=== PATIENT | female | born 1955 | race Caucasian/White ===

== ENCOUNTER → 2017-06-12 16:08 | Outpatient (CLI) | payer BC, SELFPAY | PROVIDERS: PCP Physician Assistant; Referring Provider Internal Medicine; Visit Provider Nurse Practitioner Family | DX: R40.0 Somnolence (principal); G47.33 Obstructive sleep apnea (adult) (pediatric); G47.9 Sleep disorder, unspecified; R00.2 Palpitations; R06.83 Snoring; I10 Essential (primary) hypertension; I11.9 Hypertensive heart disease without heart failure; E03.9 Hypothyroidism, unspecified; E66.9 Obesity, unspecified | CPT/HCPCS: 95806; G0399 ==

== ENCOUNTER → 2017-12-11 14:15 | Outpatient (REF) | payer BC, SELFPAY ==
[2017-12-11 18:20] LABS: Basophils # 0.1 K/mm3 (0-0.2); Basophils % 0.8 % (0.1-2.0); Eosinophils # 0.2 K/mm3 (0.0-0.4); Hematocrit 41.1 % (37.0-47.0); Hemoglobin 13.7 g/dL (12.2-16.2); Lymphocytes # 2.2 K/mm3 (0.7-4.5); Lymphocytes % 29.7 K/mm3 (10-50); Mean Corpuscular HGB Conc 33.3 g/dL (31.8-35.4); Mean Corpuscular Hemoglobin 29.6 pg (27.0-31.2); Mean Corpuscular Volume 88.7 fl (81-99); Mean Platelet Volume 7.1 fl (7.4-10.4); Monocytes # 0.4 K/mm3 (0.1-1.0); Monocytes % 5.7 % (1.7-9.3); Neutrophils # 4.7 K/mm3 (1.8-7.8); Neutrophils % 61.7 % (37.0-80.0); Platelet Count 404 K/mm3 (142-424); Red Blood Count 4.64 M/mm3 (4.20-5.40); Red Cell Distribution Width 13.1 % (11.5-17.5); White Blood Count 7.5 K/mm3 (4.8-10.8)
[2017-12-11 18:45] LABS: Alanine Aminotransferase 20 U/L (12-78); Albumin Level 3.9 gm/dL (3.4-5.0); Alkaline Phosphatase 77 U/L (46-116); Anion Gap 12.2 mEq/L (5-15); Aspartate Amino Transferase 17 U/L (15-37); Bilirubin,Total 0.3 mg/dL (0.2-1.0); Blood Urea Nitrogen 13 mg/dL (7-18); Calcium 9.2 mg/dL (8.5-10.1); Carbon Dioxide 29 mmol/L (21.0-32.0); Chloride 103 mmol/L (98-107); Chol/HDL Ratio 3.8 (1-3.5); Cholesterol 188 mg/dL (140-200); Creatinine,Serum 0.86 mg/dL (0.55-1.02); Estimated Glomerular Filt Rate 67 ml/min (>60); GFR (African American) 81 ML/MIN (>60); Globulin 3.9 gm/dl (1.3-3.2); Glucose 90 mg/dL (74-106); HDL Cholesterol 49 mg/dL (29-89); LDL Cholesterol 110 mg/dL (0-130); Potassium 4.2 mmoL/L (3.5-5.1); Sodium 140 mmol/L (136-145); T4 (Thyroxine) 5.7 ug/dl (4.7-13.3); Thyroid Stimulating Hormone 4.28 uIU/ml (0.358-3.740); Total Protein,Serum 7.8 gm/dL (6.4-8.2); Triglycerides 147 mg/dL (30-200); VLDL Cholesterol 29 mg/dL (0-40)
[2017-12-13 08:36] LABS: Vitamin D 25 Hydroxy 38.3 ng/mL (30.0-100.0)
== END ==
LOC: LAB 14:15
PROVIDERS: Visit Provider Physician Assistant
DX: I10 Essential (primary) hypertension (principal)
CPT/HCPCS: 80053; 80061; 82652; 84436; 84443; 85025

== ENCOUNTER → 2019-09-03 17:01 | Outpatient (CLI) | payer BC, SELFPAY ==
[2019-09-03 18:03] LABS: Basophils # 0.1 K/mm3 (0-0.2); Basophils % 1.7 % (0.1-2.0); Eosinophils # 0.1 K/mm3 (0.0-0.4); Eosinophils % 0.9 % (0.1-12.0); Hematocrit 38.8 % (37.0-47.0); Hemoglobin 13.3 g/dL (12.2-16.2); Lymphocytes # 3.1 K/mm3 (0.7-4.5); Lymphocytes % 48.8 % (10-50); Mean Corpuscular HGB Conc 34.3 g/dL (31.8-35.4); Mean Corpuscular Hemoglobin 30.5 pg (27.0-31.2); Mean Corpuscular Volume 88.7 fl (81-99); Mean Platelet Volume 7.7 fl (7.4-10.4); Monocytes # 0.4 K/mm3 (0.1-1.0); Monocytes % 5.6 % (1.7-9.3); Neutrophils # 2.8 K/mm3 (1.8-7.8); Neutrophils % 42.9 % (37.0-80.0); Platelet Count 278 K/mm3 (142-424); Red Blood Count 4.37 M/mm3 (4.20-5.40); Red Cell Distribution Width 13.6 % (11.5-17.5); White Blood Count 6.4 K/mm3 (4.8-10.8)
[2019-09-03 18:20] LABS: Alanine Aminotransferase 45 U/L (12-78); Albumin Level 4.3 g/dl (3.5-5.0); Albumin/Globulin Ratio 1.1 (1.1-1.8); Alkaline Phosphatase 95 U/L (38-126); Anion Gap 13.1 mEq/L (5-15); Aspartate Amino Transferase 71 U/L (14-36); Bilirubin,Total 0.5 mg/dl (0.2-1.3); Blood Urea Nitrogen 19 mg/dl (7-17); Calcium 9.9 mg/dl (8.4-10.2); Carbon Dioxide 35 mmol/L (22.0-30.0); Chloride 93 mmol/L (98-107); Chol/HDL Ratio 4.5 (1-3.5); Cholesterol 168 mg/dl (140-200); Estimated Glomerular Filt Rate 56 ml/min (>60); GFR (African American) 68 ML/MIN (>60); Glucose 117 mg/dl (74-100); HDL Cholesterol 37 mg/dl (40-60); Potassium 4.1 mmoL/L (3.5-5.1); Sodium 137 mmol/L (136-145); Total Protein,Serum 8.3 g/dl (6.3-8.2); Triglycerides 258 mg/dl (30-150); VLDL Cholesterol 52 mg/dL (0-40)
[2019-09-03 18:32] LABS: Direct LDL Cholesterol 84.29 mg/dL (100-129)
[2019-09-03 18:37] LABS: T4 (Thyroxine) 7.1 ug/dl (5.53-11.0)
[2019-09-04 16:26] LABS: Thyroid Stimulating Hormone 9.86 uIU/mL (0.465-4.68)
[2019-09-04 17:06] LABS: Hemoglobin A1C 5.6 % (4.0-6.0)
[2019-09-09 08:17] LABS: 1,25 Dihydroxy Vitamin D 50 pg/mL (.); 1,25-Dihydroxy, Vitamin D-2 <10 pg/mL (.); 1,25-Dihydroxy, Vitamin D-3 50 pg/mL (.)
== END ==
PROVIDERS: Visit Provider Physician Assistant
DX: R42 Dizziness and giddiness (principal); R51 Headache; Z79.899 Other long term (current) drug therapy
CPT/HCPCS: 80053; 80061; 82652; 83036; 84436; 84443; 85025

== ENCOUNTER 2019-09-08 08:37 | Emergency (ER) | payer BC, SELFPAY ==
[2019-09-08 08:40] VITALS: BP 104/71; PULSE 95; RESP 14; TEMP 36.7; O2SAT 94; BMI 37.4
--- NOTE | 2019-09-08 08:49 | ECG_ITS ---
APPROVED REPORT Exam: Resting ECG HR:91 bpm ECG Measurements Heart Rate 91 AXES HI 154 P 18 QRSd 94 QRS 20 QT 354 T 70 QTc 435 <Conclusion> Normal sinus rhythm Normal ECG Electronically signed by : Marcin Duncan, 09/08/2019 17:27:09
--- NOTE | 2019-09-08 08:55 | XR_ITS ---
PROCEDURE: XR CHEST 2V CLINICAL HISTORY: WEAKNESS COMPARISON: No exams were available for comparison FINDINGS: There is mild degenerative thoracic scoliosis. Lung pham, cardiac silhouette, and the soft tissues are unremarkable. IMPRESSION: Degenerative thoracic scoliosis, clear lung pham Dictated by: Gilbert Kathleen 09/08/2019 09:57 Electronically signed by Gilbert Kathleen in [place] 09/08/2019 09:57
--- NOTE | 2019-09-08 09:01 | PC.NURSE ---
pt going to rad
[2019-09-08 09:07] LABS: Appearance,Urine CLEAR (Clear); Blood, Urine Negative (Negative); Color,Urine AMBER (Yellow); Glucose,Urine (UA) Negative (Negative); Ketones,Urine TRACE (Negative); Leukocyte Esterase,Urine Negative (Negative); Microscopic, Urine URINE MICROSCOPIC (MICROSCOPIC); Nitrate,Urine Negative (Negative); PH,Urine 6.5 (5.0-8.5); Protein,Urine 1+ (Negative); Specific Gravity, Urine 1.015 (1.005-1.030); Urobilinogen,Urine 0.2 EU/dl (0.2)
[2019-09-08 09:14] LABS: Bilirubin,Urine Negative (Negative)
[2019-09-08 09:21] LABS: Chloride 95 mmol/L (98-107); Potassium 4.1 mmoL/L (3.5-5.1); Sodium 135 mmol/L (136-145)
[2019-09-08 09:23] LABS: Alanine Aminotransferase 135 U/L (12-78); Aspartate Amino Transferase 169 U/L (14-36); Bilirubin,Total 0.9 mg/dl (0.2-1.3); Blood Urea Nitrogen 14 mg/dl (7-17); Creatinine Clearance Estimated 94 mL/min (50-200); Estimated Glomerular Filt Rate 56 ml/min (>60); GFR (African American) 68 ML/MIN (>60)
[2019-09-08 09:24] LABS: Albumin Level 4.2 g/dl (3.5-5.0); Alkaline Phosphatase 110 U/L (38-126); Anion Gap 11.1 mEq/L (5-15); Calcium 8.8 mg/dl (8.4-10.2); Carbon Dioxide 33 mmol/L (22.0-30.0); Globulin 4.4 g/dL (1.3-3.2); Glucose 146 mg/dl (74-100); Total Protein,Serum 8.6 g/dl (6.3-8.2)
[2019-09-08 09:25] LABS: Basophils # 0.2 K/mm3 (0-0.2); Basophils % 1.7 % (0.1-2.0); Eosinophils # 0.1 K/mm3 (0.0-0.4); Eosinophils % 0.7 % (0.1-12.0); Hematocrit 40.2 % (37.0-47.0); Hemoglobin 13.8 g/dL (12.2-16.2); Lymphocytes # 5.4 K/mm3 (0.7-4.5); Lymphocytes % 59.9 % (10-50); Mean Corpuscular HGB Conc 34.3 g/dL (31.8-35.4); Mean Corpuscular Volume 87.2 fl (81-99); Mean Platelet Volume 7.2 fl (7.4-10.4); Monocytes # 0.3 K/mm3 (0.1-1.0); Monocytes % 3.4 % (1.7-9.3); Neutrophils # 3.1 K/mm3 (1.8-7.8); Neutrophils % 34.3 % (37.0-80.0); Platelet Count 329 K/mm3 (142-424); Red Blood Count 4.61 M/mm3 (4.20-5.40); Red Cell Distribution Width 13.8 % (11.5-17.5)
[2019-09-08 09:27] LABS: MANUAL DIFFERENTIAL MANUAL DIFFERENTIAL (MANUAL DIFF)
[2019-09-08 09:37] LABS: Troponin I < 0.01 ng/ml (0.00-0.034)
[2019-09-08 09:39] LABS: Bacteria,Urine 1+ /lpf
[2019-09-08 09:45] LABS: Eosinophils % 1 % (0-3); Lymphocytes % 46 % (10-50); Monocytes % 4 % (2-9); Neutrophils % 39 % (42-76); Platelet Estimate Normal; RBC Morphology Normal; Total Cells Counted 100
--- NOTE | 2019-09-08 09:47 | HMH.EDWEAK ---
ED Disposition Clinical Impression: Dehydration, Gastroenteritis Disposition: Home, Self-Care Condition on Discharge: Good Instructions: DI for Muscle Weakness Prescriptions: Tizanidine HCl [Zanaflex 4mg tablet] 4 mg PO TID 10 Days #30 tab Transmission Status: Pending to [facility]/pharmacy #[id number] Referrals: Zaina Zavala PA [Primary Care Provider] - - Critical Care Critical Care Time: No Attestation: On 09/08/19, the high probability of a clinically significant, sudden or life threatening deterioration of the following system(s) required my full and direct attention, intervention and personal management. The time I documented below is in addition to time spent performing reported procedures but includes the following listed in this critical care notation. Medical Decision Making - Medical Records Medical records reviewed: Yes: I reviewed the patient's medical records. - Abdon Inquiry Pt receiving controlled substance: No Vital Signs: 09/08/19 08:40 Temperature 98.1 F Temperature Source Oral Pulse Rate [Right Radial] 95 H Respiratory Rate 14 Blood Pressure [Right Arm] 104/71 L Blood Pressure Mean [Right Arm] 82 Blood Pressure Source [Right Arm] Automatic Cuff Blood Pressure Position [Right Arm] Sitting 02 Sat by Pulse Oximetry 94 L Oxygen Delivery Method Room Air - Lab Data Lab results reviewed: Yes: I reviewed the patient's lab results. Lab Results 09/08/19 08:58: Urine Color Angela, Urine Appearance Clear, Urine pH 6.5, Ur Specific [place] 1.015, Urine Protein 1+, Urine Glucose (UA) Negative, Urine Ketones Trace, Urine Blood Negative, Urine Nitrate Negative, Urine Bilirubin Negative, Urine Urobilinogen 0.2, Ur Leukocyte Esterase Negative, Urine RBC 3-5, Urine WBC 5-10, Ur Squamous Epith Cells 3-5, Urine Bacteria 1+ 09/08/19 09:00: WBC 9.0, RBC 4.61, Hgb 13.8, Hct 40.2, MCV 87.2, MCH 30.0, MCHC 34.3, RDW 13.8, Plt Count 329, MPV 7.2 L, Neut % (Auto) 34.3 L, Lymph % (Auto) 59.9 H, Porter % (Auto) 3.4, Eos % (Auto) 0.7, Baso % (Auto) 1.7, Neut # (Auto) 3.1, Lymph # (Auto) 5.4 H, Porter # (Auto) 0.3, Eos # (Auto) 0.1, Baso # (Auto) 0.2, Total Counted 100, Neutrophils % (Manual) 39 L, Lymphocytes % (Manual) 46, Atypical Lymphs % 8.0, Monocytes % (Manual) 4, Eosinophils % (Manual) 1, Basophils % (Manual) 2.0 H, Platelet Estimate Normal, RBC Morphology Normal 09/08/19 09:00: Sodium 135 L, Potassium 4.1, Chloride 95 L, Carbon Dioxide 33 H, Anion Gap 11.1, BUN 14, Creatinine 1.00, Estimated Creat Clear 94, Estimated GFR 56 L, Est GFR ( Amer) 68, Glucose 146 H, Calcium 8.8, Total Bilirubin 0.9, AST 169 H, ALT 135 H, Alkaline Phosphatase 110, Troponin I < 0.01, Total Protein 8.6 H, Albumin 4.2, Globulin 4.4 H, Albumin/Globulin Ratio 1.0 L Result diagrams: 09/08/19 09:00 09/08/19 09:00 Orders (Tests/Meds): ED MEDICATIONS Generic Name Dose Route Start Last Admin Trade Name Freq PRN Reason Stop Dose Admin Sodium Chloride 1,000 mls @ 999 mls/hr 09/08/19 09:15 09/08/19 09:05 Sod Chlor 0.9% 1000ml Bag IV 09/08/19 10:15 999 mls/hr .Q1H1M AYANNA Administration Discontinued Medications Generic Name Dose Route Start Last Admin Trade Name Freq PRN Reason Stop Dose Admin Ondansetron HCl 4 mg 09/08/19 09:03 09/08/19 09:05 Zofran 4mg/2ml Vial IV 09/08/19 09:04 4 mg ONCE ONE Administration ORDERS Category Date Time Status Chest XR 2 view (NOT portable) [XR chest 2V] Stat Exams 09/08/19 08:55 Taken Troponin I Q3H Lab 09/08/19 12:00 Ordered Troponin I Q3H Lab 09/08/19 15:00 Ordered - Radiology Data #1 Image(s): Chest Preliminary Findings: Normal/NAD Weakness HPI - General Chief complaint: Weakness Stated complaint: soa weakness Time Seen by Provider: 09/08/19 09:47 Mode of Arrival: Wheelchair Limitations: No Limitations Description of Symptoms (Recalled from ER Triage Doc. by RN): PT C/O INCREASED WEAKNESS X1 WEEK AND PT C/O CLAMMY SKIN TODAY. PT DENIES F
[2019-09-08 10:10] VITALS: BP 97/57; PULSE 76; RESP 20; O2SAT 98
[2019-09-08 10:46] VITALS: BP 103/59; PULSE 88
[2019-09-08 11:04] VITALS: BP 103/59; PULSE 88; RESP 16; TEMP 36.6; O2SAT 98
== END 2019-09-08 11:06 | disposition home or self-care (01) ==
PROVIDERS: Emergency Provider Family Medicine; PCP Physician Assistant
DX: E86.0 Dehydration (principal); K52.9 Noninfective gastroenteritis and colitis, unspecified; Z87.891 Personal history of nicotine dependence
CPT/HCPCS: 71046; 80053; 81001; 84484; 85007; 85025; 93005; 96365; 96375; 99284; J2405

== ENCOUNTER → 2019-09-12 13:43 | Outpatient (CLI) | payer BC, SELFPAY ==
--- NOTE | 2019-09-12 13:43 | US_ITS ---
PROCEDURE: US THYROID CLINICAL INDICATION: Enlarged thyroid; f/h thyroid cancer COMPARISON: No exams were available for comparison FINDINGS: Both thyroid glands are enlarged and heterogeneous echogenicity. Right lobe: 3 centimeters x 5.1 centimeters x 3.5 centimeters. Left lobe: 3.2 centimeters x 5.2 centimeters x 3.2 centimeters Isthmus: 8.3 millimeters Additional findings: No discrete mass lesions IMPRESSION: Thyromegaly, probable multinodular goiter. Dictated by: Gilbert Kathleen 09/12/2019 14:19 Electronically signed by Gilbert Kathleen in [place] 09/12/2019 14:19
== END ==
PROVIDERS: PCP Physician Assistant; Visit Provider Physician Assistant
DX: E01.0 Iodine-deficiency related diffuse (endemic) goiter (principal)
CPT/HCPCS: 76536

== ENCOUNTER → 2019-09-18 15:45 | Outpatient (CLI) | payer BC, SELFPAY ==
[2019-09-20 13:48] LABS: Covid-19 Nasal PCR Sendout Lex Not Detected
== END ==
PROVIDERS: PCP Physician Assistant; Visit Provider Physician Assistant
DX: Z03.818 Encounter for observation for suspected exposure to other biological agents ruled out (principal)
CPT/HCPCS: U0004

== ENCOUNTER → 2019-09-26 09:43 | Outpatient (CLI) | payer BC, SELFPAY | PROVIDERS: PCP Physician Assistant; Visit Provider Physician Assistant | DX: R06.02 Shortness of breath (principal) | CPT/HCPCS: 94060; 94618; 94726; 94729 ==

== ENCOUNTER → 2019-10-09 10:44 | Outpatient (CLI) | payer BC, SELFPAY ==
--- NOTE | 2019-10-09 10:46 | MM_ITS ---
PROCEDURE: MM DIG SCREENING MAMM BI W/CAD Digital Breast Tomosynthesis Included CLINICAL INDICATION: screening There is a history of breast cancer patient's mother diagnosed after menopause. COMPARISON: MAMMO SCREENING DIGITAL BILAT from 05/04/2015 Screening-Bilateral Mammography from 05/23/2016 Screening-Bilateral Mammography from 06/07/2017 TECHNIQUE: Standard CC and MLO images and 3D Tomosynthesis was obtained. R2 CAD reviewed. FINDINGS: The breasts are composed primarily of fat with mild scattered and somewhat diffuse fibroglandular densities in each breast. There are 2 mole markers right breast. There is a single mole marker left breast. There is no suspicious lesion in either breast and no suspicious microcalcifications. There are couple of benign-appearing calcifications deep within the right breast medially. IMPRESSION: Fibrofatty parenchyma with no suspicious lesions seen BI-RAD Category: 2 Benign Finding(s) FOLLOW-UP: 1YR 1 Year Follow-up (A letter has been sent to the patient regarding results of the study.) Dictated by: Dr. Miguel Angel Caballero MD 10/15/2019 21:[address] Miguel Angel Caballero MD in [place] 10/15/2019 21:00
--- NOTE | 2019-10-09 10:51 | CA_ITS ---
APPROVED REPORT EXAM: Comprehensive 2D, Doppler, and color-flow Echocardiogram Ink Blender: Sherry Molina RDCS Ht: 5 ft 6 in Wt: 230lbs BSA: 2.12 BP: 122/81 mmHg Indications: SOA,HTN,HLP,EX SMOKER 2D Dimensions LVOT 1.85 cm (M/F) 1.5-2.5 M-Mode Dimensions RVDd 3.32 cm (0.9-2.6) LVDd 4.46 cm (3.5-5.7) LVDs 3.40 cm (3.5-5.7) IVSd 0.94 cm (0.6-1.1) PWd 0.98 cm (0.6-1.1) EF (Teich) 47.60% FS 23.80% EDV (Teich) 90.50 mL ESV (Teich) 47.40 mL LV Diastology E/A Ratio 0.75 Mitral Valve MV A Velocity 65.00 (40-130 cm/s) Left Ventricle Left atrium is mildly enlarged, left ventricle is normal size, mild concentric left ventricular hypertrophy, visually estimated ejection fraction 55% with no regional wall motion abnormality, grade 1 diastolic dysfunction seen without tissue Doppler evidence of raise left atrial pressure. Right Ventricle Right atrium and right ventricular mildly enlarged with normal contractility. Aortic Valve Aortic valve is minimally thickened and fibrosed, there is no aortic stenosis or aortic insufficiency. Mitral Valve Mitral valve is grossly normal, there is mild mitral regurgitation. Tricuspid Valve Tricuspid valve is grossly normal, there is mild tricuspid regurgitation, tricuspid regurgitation jet velocity is inadequate for calculation of the right ventricular systolic pressure. Pulmonic Valve Pulmonic valve is poorly visualized. Great Vessels Aortic root is normal size. Pericardium Trivial pericardial effusion noted. Conclusion 1. Mild biatrial enlargement, normal left ventricular size, mild concentric left ventricular hypertrophy, visually estimated ejection fraction 55% with no regional wall motion abnormality, grade 1 diastolic dysfunction seen without tissue Doppler evidence of raise left atrial pressure. 2. Mildly enlarged right ventricle with normal contractility. 3. Mild mitral and tricuspid regurgitation. 4. No significant pericardial effusion noted. Electronically signed by : Joel Morales, 10/09/2019 14:31:02
== END ==
PROVIDERS: PCP Physician Assistant; Visit Provider Physician Assistant
DX: Z12.31 Encounter for screening mammogram for malignant neoplasm of breast (principal); R06.02 Shortness of breath
CPT/HCPCS: 77063; 77067; 93306

== ENCOUNTER → 2019-11-06 15:09 | Outpatient (CLI) | payer BC, SELFPAY ==
[2019-11-06 16:12] LABS: Free T4 (Free Thyroxine) 1.26 ng/dl (0.78-2.19)
[2019-11-06 16:25] LABS: Thyroid Stimulating Hormone 1.28 uIU/mL (0.465-4.68)
[2019-11-08 08:14] LABS: Thyroid Peroxidase Antibodies 76 IU/mL (0-34)
[2019-11-08 10:16] LABS: Triiodothyronine (T3) Free 3.2 pg/mL (2.0-4.4)
[2019-11-10 11:16] LABS: Calcitonin <2.0 pg/mL (0.0-5.0)
[2019-11-10 18:57] LABS: Thyroid Stimulating Immunoglob <0.10 IU/L (0.00-0.55)
== END ==
PROVIDERS: Visit Provider Otolaryngology
DX: E04.9 Nontoxic goiter, unspecified (principal); E06.3 Autoimmune thyroiditis
CPT/HCPCS: 36415; 82308; 84439; 84443; 84445; 84481; 86376

== ENCOUNTER → 2020-12-15 10:48 | Outpatient (CLI) | payer BC, SELFPAY ==
--- NOTE | 2020-12-15 10:55 | MM_ITS ---
PROCEDURE INFORMATION: Exam: MG Bilateral Screening 3D Mammography Exam date and time: 12/15/2020 10:55 AM Age: 65 years old Clinical indication: Encounter for screening mammogram for malignant neoplasm of breast TECHNIQUE: Imaging protocol: Bilateral screening tomosynthesis and 2D mammography including computer-aided detection (CAD) when performed. COMPARISON: 1. MG MM DIG SCREENING MAMM BI W/CAD 10/09/2019 10:46 AM 2. MG Screening-Bilateral Mammography 06/07/2017 6:52 PM FINDINGS: MAMMOGRAPHY: Breast composition: The breast tissue is composed of scattered areas of fibroglandular density. Mass: None. Architectural distortion: None. Calcifications: No suspicious calcifications. Asymmetric density: None. Skin thickening: None. Axillary adenopathy: None. IMPRESSION: No mammographic evidence of malignancy. Annual screening is recommended unless otherwise clinically indicated. ASSESSMENT: BI-RADS Category 1: Negative
== END ==
PROVIDERS: PCP Physician Assistant; Visit Provider Nurse Practitioner
DX: Z12.31 Encounter for screening mammogram for malignant neoplasm of breast (principal)
CPT/HCPCS: 77063; 77067

== ENCOUNTER → 2021-08-22 14:00 | Outpatient (CLI) | payer BC, SELFPAY ==
[2021-08-22 13:37] LABS: Basophils # 0.1 K/mm3 (0-0.2); Basophils % 1.7 % (0.1-2.0); Eosinophils # 0.1 K/mm3 (0.0-0.4); Eosinophils % 1.8 % (0.1-12.0); Hemoglobin 14.7 g/dL (12.2-16.2); Lymphocytes # 2.2 K/mm3 (0.7-4.5); Lymphocytes % 31.7 % (10-50); Mean Corpuscular HGB Conc 33.4 g/dL (31.8-35.4); Mean Corpuscular Hemoglobin 30.6 pg (27.0-31.2); Mean Corpuscular Volume 91.4 fl (81-99); Mean Platelet Volume 7.8 fl (7.4-10.4); Monocytes # 0.3 K/mm3 (0.1-1.0); Monocytes % 4.7 % (1.7-9.3); Neutrophils # 4.1 K/mm3 (1.8-7.8); Neutrophils % 60.2 % (37.0-80.0); Platelet Count 380 K/mm3 (142-424); Red Blood Count 4.82 M/mm3 (4.20-5.40); Red Cell Distribution Width 13.3 % (11.5-17.5); White Blood Count 6.8 K/mm3 (4.8-10.8)
[2021-08-22 13:41] LABS: Alanine Aminotransferase 19 U/L (12-78); Albumin Level 4.2 g/dl (3.5-5.0); Albumin/Globulin Ratio 1.2 (1.1-1.8); Alkaline Phosphatase 64 U/L (38-126); Anion Gap 10.9 mEq/L (5-15); Aspartate Amino Transferase 30 U/L (14-36); Bilirubin,Total 0.3 mg/dl (0.2-1.3); Blood Urea Nitrogen 12 mg/dl (7-17); Calcium 9.7 mg/dl (8.4-10.2); Carbon Dioxide 33 mmol/L (22.0-30.0); Chloride 97 mmol/L (98-107); Chol/HDL Ratio 3.8 (1-3.5); Cholesterol 203 mg/dl (140-200); Estimated Glomerular Filt Rate 84 ml/min (>60); GFR (African American) 102 ML/MIN (>60); Globulin 3.4 g/dL (1.3-3.2); Glucose 103 mg/dl (74-100); HDL Cholesterol 53 mg/dl (40-60); Potassium 3.9 mmoL/L (3.5-5.1); Sodium 137 mmol/L (136-145); Total Protein,Serum 7.6 g/dl (6.3-8.2); Triglycerides 175 mg/dl (30-150); VLDL Cholesterol 35 mg/dL (0-40)
[2021-08-22 13:52] LABS: Direct LDL Cholesterol 92.78 mg/dL (100-129)
[2021-08-22 13:58] LABS: 25-OH Vitamin D, Total 34.5 ng/mL (30-100)
[2021-08-22 14:11] LABS: Thyroid Stimulating Hormone 1.05 uIU/mL (0.465-4.68)
[2021-08-22 14:30] LABS: Vitamin B12 393 pg/mL (239-931)
== END ==
PROVIDERS: PCP Physician Assistant; Visit Provider Physician Assistant
DX: R19.7 Diarrhea, unspecified (principal); E03.9 Hypothyroidism, unspecified; I10 Essential (primary) hypertension; R53.83 Other fatigue; E66.9 Obesity, unspecified; Z68.35 Body mass index [BMI] 35.0-35.9, adult
CPT/HCPCS: 80053; 80061; 82306; 82607; 84443; 85025

== ENCOUNTER → 2021-08-23 09:24 | Outpatient (CLI) | payer BC, SELFPAY ==
[2021-08-23 09:27] LABS: Adenovirus F 40/41, stool Not Detected (NotDetected); Astrovirus Not Detected (NotDetected); Campylobacter Not Detected (NotDetected); Clostridium Difficile A/B, PCR Not Detected (NotDetected); Cryptosporidium Not Detected (NotDetected); Cyclospora Cayetanesis Not Detected (NotDetected); Entamoeba histolytica Not Detected (NotDetected); Enteroaggregative E coli Not Detected (NotDetected); Enteropathogenic E coli Not Detected (NotDetected); Enterotoxigenic E coli Not Detected (NotDetected); Giardia lamblia Not Detected (NotDetected); Norovirus Not Detected (NotDetected); Plesimonas Shigalloides, PCR Not Detected (NotDetected); Rotavirus A Not Detected (NotDetected); Salmonella, PCR Not Detected (NotDetected); Sapovirus Not Detected (NotDetected); Shiga-like toxin E coli Not Detected (NotDetected); Shigella Enterovasive E coli Not Detected (NotDetected); Vibrio Cholerae Not Detected (NotDetected); Vibrio, PCR Not Detected (NotDetected); Yersinia Entercolitica, PCR Not Detected (NotDetected)
[2021-08-23 12:12] LABS: Occult Blood,Stool Negative (Negative)
== END ==
PROVIDERS: Physician Assistant; PCP Nurse Practitioner Family; Visit Provider Nurse Practitioner Family
DX: R19.7 Diarrhea, unspecified (principal); Z00.00 Encounter for general adult medical examination without abnormal findings
CPT/HCPCS: 82272; 87507; G0328

== ENCOUNTER → 2021-11-22 08:05 | Outpatient (POV) | payer MEDICARE, SELFPAY | PROVIDERS: Visit Provider Dermatology | DX: Z00.00 Encounter for general adult medical examination without abnormal findings (principal) ==

== ENCOUNTER → 2022-01-19 09:33 | Outpatient (CLI) | payer MEDICARE, SELFPAY ==
--- NOTE | 2022-01-19 09:37 | MM_ITS ---
PROCEDURE INFORMATION: Exam: MG Bilateral Screening 3D Mammography Exam date and time: 01/19/2022 9:31 AM Age: 66 years old Clinical indication: Screening examination TECHNIQUE: Imaging protocol: Bilateral Screening tomosynthesis and 2D mammography including computer-aided detection (CAD) when performed. COMPARISON: 1. MG MM DIG SCREENING MAMM BI W/CAD 12/15/2020 10:54 AM 2. MG MM DIG SCREENING MAMM BI W/CAD 10/09/2019 10:46 AM FINDINGS: MAMMOGRAPHY: Breast composition: There are scattered areas of fibroglandular density. Mass: None. Architectural distortion: None. Calcifications: No suspicious calcifications. Asymmetric density: None. Skin thickening: None. Axillary adenopathy: None. IMPRESSION: No mammographic evidence of malignancy. Annual screening is recommended unless otherwise clinically indicated. ASSESSMENT: BI-RADS Category 1: Negative
== END ==
PROVIDERS: PCP Physician Assistant; Visit Provider Physician Assistant
DX: Z12.31 Encounter for screening mammogram for malignant neoplasm of breast (principal)
CPT/HCPCS: 77063; 77067

== ENCOUNTER → 2022-03-06 12:24 | Outpatient (CLI) | payer MEDICARE, SELFPAY ==
[2022-03-06 12:32] LABS: Adenovirus,PCR Not Detected (NotDetected); Bordetella Pertussis Not Detected (NotDetected); Chlamydophila Pneumoniae, PCR Not Detected (NotDetected); Coronavirus 19, PCR Not Detected (NotDetected); Coronavirus 229E Not Detected (NotDetected); Coronavirus NL63 Not Detected (NotDetected); Coronavirus OC43 Not Detected (NotDetected); Coronovirus HKU1,PCR Not Detected (NotDetected); Human Metapneumovirus Not Detected (NotDetected); Influenza A, PCR Not Detected (NotDetected); Influenza AH1, 2009 Not Detected (NotDetected); Influenza AH1, PCR Not Detected (NotDetected); Influenza B, PCR Not Detected (NotDetected); Mycoplasma Pneumoniae, PCR Not Detected (NotDetected); Parainfluenza 1, PCR Not Detected (NotDetected); Parainfluenza 2, PCR Not Detected (NotDetected); Parainfluenza 3, PCR Not Detected (NotDetected); Parainfluenza 4, PCR Not Detected (NotDetected); Respiratory Syncytial Virus Not Detected (NotDetected); Rhinovirus/Enterovirus Not Detected (NotDetected)
--- NOTE | 2022-03-06 12:39 | XR_ITS ---
FINAL REPORT CLINICAL HISTORY: Acute cough COMPARISON: 09/08/2019 FINDINGS: Two views of the chest were obtained. The heart size and pulmonary vascularity are within normal limits. The mediastinum is normal. No acute pulmonary abnormality is identified. There is no pneumothorax. The bony thorax is intact. IMPRESSION: No active cardiopulmonary disease. Reviewed, Interpreted and Dictated by Adan Rojas III, MD Transcribed by Daniella Billingsley Authenticated and . [facility]
[2022-03-06 16:20] LABS: Influenza AH3,PCR Detected (NotDetected)
== END ==
PROVIDERS: PCP Physician Assistant; Visit Provider Physician Assistant
DX: R05.9 Cough, unspecified (principal); J09.X2 Influenza due to identified novel influenza A virus with other respiratory manifestations
CPT/HCPCS: 71046; 87581; 87632; 87798; C9803; U0003; U0005

== ENCOUNTER → 2022-05-29 15:51 | Outpatient (CLI) | payer MEDICARE, SELFPAY ==
--- NOTE | 2022-05-29 15:51 | MR_ITS ---
PROCEDURE INFORMATION: Exam: MR Lumbar Spine Without Contrast Exam date and time: 05/29/2022 4:09 PM Age: 66 years old Clinical indication: Low back pain; Additional info: Lumbar compression fracture. Patient fell 1.5 months ago. Low back pain with bilateral hip pain TECHNIQUE: Imaging protocol: Magnetic resonance imaging of the lumbar spine without contrast. COMPARISON: No relevant prior studies available. FINDINGS: Bones/joints: There is preservation of vertebral alignment. There are anterior compression deformities at L2 and L3 vertebrae with residual superior endplate STIR hyperintensity in keeping with subacute age. Mild discogenic changes at L3-L4 level.No marrow replacing process. Spinal cord: Conus medullaris and cauda equina nerve roots are unremarkable L1-L2: No significant disc bulge or herniation. No severe spinal canal stenosis. No significant neural foraminal narrowing. L2-L3: Diffuse disc bulge and facet arthropathy produce moderate thecal sac compression. There is no significant neural foraminal narrowing. L3-L4: Diffuse disc bulge and facet arthropathy produce mild thecal sac compression. There is mild bilateral neural foraminal narrowing. L4-L5: Diffuse disc bulge and facet arthropathy produce mild thecal sac compression. There is moderate bilateral neural foraminal narrowing. There is a right foraminal disc protrusion in close proximity to right L4 exiting nerve root. L5-S1: Diffuse disc bulge and facet arthropathy without significant thecal sac compression. There is mild bilateral neural foraminal narrowing. Soft tissues: Unremarkable. Kidneys and ureters: There are variably-sized renal cysts. Vasculature: Retroaortic left renal vein noted. IMPRESSION: 1. There are anterior compression deformities at L2 and L3 vertebrae with residual superior endplate STIR hyperintensity, in keeping with subacute age. 2. Multilevel degenerative changes most significant for moderate thecal sac compression at L2-L3 level. Moderate bilateral neural foramina narrowing at L4-L5 level.
== END ==
PROVIDERS: PCP Physician Assistant; Visit Provider Physician Assistant
DX: S32.000A Wedge compression fracture of unspecified lumbar vertebra, initial encounter for closed fracture (principal); M54.50 Low back pain, unspecified
CPT/HCPCS: 72148; 76376

== ENCOUNTER → 2022-06-19 13:14 | Outpatient (POV) | payer MEDICARE, SELFPAY ==
[2022-06-19 13:50] VITALS: BP 132/84; PULSE 79; RESP 18; O2SAT 97; BMI 35.7
--- NOTE | 2022-06-19 13:51 | EXP.PAIN.OV ---
HPI Data of Consult Patient: new to practice Consult date: 06/19/22 Requesting Physician: Angela Buckley APRN Primary Care Provider: JOSÉ Hargrove Consult Narrative Reason for consult: Low back pain, compression fracture History of present illness: Ms. Zuleta is a 66 year old female who presents today as a new patient. She is a referral from Zaina Zavala's office. Today she rates her pain a 0 out of 10. Patient states she recently had a fall in around the end of March and did have significant pain however it did get better. Patient did have an MRI that showed compression fractures of L2 and L3. Patient states she continues to have this occasional pain that is a sharp, shooting pain. She states it is more frequent with certain movements. Today while she is sitting she states that it is manageable. Patient states that she was recently on oral steroids for her sinuses and did not realize how well this medication was actually helping her back pain. She states she did notice once stopping this medicine that her pain was worse. She states occasionally she will have trouble sleeping at night and that she frequently has to change positions from hip to hip. She does state that she has questions regarding the kyphoplasty procedure due to not currently having constant pain. Patient is not currently on any scheduled medications. Her Abdon is [phone]. Its been reviewed and appropriate. CC: Angela Buckley APRN [facility] Disclaimer: The information contained in this section may have been updated after the patient was seen, as this information can be updated by other users. Medical History (Updated 06/19/22 @ 13:54 by Angela Buckley APRN) Anxiety and depression Splenic cyst Social History Smoking Status: Former smoker alcohol intake: current substance use type: denies use current occupational status: retired Travel in the last 8 weeks: None household members: spouse housing: house Review of Systems Review of Systems Review of systems:: pertinent systems reviewed and negative unless documented below Review of systems (narrative): Review of Systems: General: No recent weight changes, no fever, no sleep disturbances Respiratory: No cough, no shortness of air, no recurring pulmonary infections Cardiovascular/peripheral vascular: No chest pain, no palpitations, no edema, no shortness of breath Gastrointestinal: No new onset incontinence, normal bowel movements reported Genitourinary: No new onset incontinence Musculoskeletal: Low back pain Psychiatric: [Normal mood/affect] Neurological: [Denies weakness in extremities], [denies balance issues] Meds Home Medications and Allergies Home Medications Medication Instructions Recorded Confirmed Type cyclobenzaprine 5 mg tablet 5 mg PO BID PRN muscle spasm #60 04/24/22 06/02/22 Rx tabs levothyroxine 75 mcg tablet 75 mcg PO DAILY 05/18/22 06/02/22 History amlodipine 5 mg tablet 5 mg PO DAILY BLOOD PRESSURE 06/19/22 06/19/22 History fluoxetine 10 mg capsule See Rx Instructions .Route 06/19/22 06/19/22 History .COMPLEX MOOD hydrochlorothiazide 50 mg tablet 50 mg PO QDAY Fluid 06/19/22 06/19/22 History lisinopril 40 mg tablet See Rx Instructions .Route 06/19/22 06/19/22 History .COMPLEX BLOOD PRESSURE New Prescriptions to Start Prescriptions: Allergies Allergy/AdvReac Type Severity Reaction Status Date / Time prednisone AdvReac Mild anxiety Uncoded 06/02/22 15:09 Objective Narrative: Physical Exam: General: Alert and oriented x3, no acute distress, pleasant and cooperative Lungs: Respirations even and unlabored, symmetrical chest expansion Eyes: PERRL Musculoskeletal: Flexion and extension of lumbar [spine] somewhat guarded secondary to pain, [antalgic gait noted] Neurological: Speech clear, no gross sensory deficit Additional findings Additional findings: PROCEDURE INFORMATIO
== END ==
PROVIDERS: PCP Physician Assistant; Visit Provider Nurse Practitioner Family
DX: S32.000A Wedge compression fracture of unspecified lumbar vertebra, initial encounter for closed fracture (principal); M54.50 Low back pain, unspecified
CPT/HCPCS: 99202; G0463

== ENCOUNTER → 2022-06-27 08:57 | Outpatient (CLI) | payer MEDICARE, SELFPAY ==
--- NOTE | 2022-06-27 09:01 | XR_ITS ---
FINAL REPORT TECHNIQUE: Bone densitometry calculations of the lumbar spine and right hip were obtained. CLINICAL HISTORY: . post menopausal , compression fx FINDINGS: DEXA BONE DENSITY AXIAL SKELETON Using L1-4, the bone mineral density of the spine is 1.366 g/cm2, corresponding to T-score of 2.9. Using the right hip, the bone mineral density of the femoral neck is 1.052 g/cm2, corresponding to a T-score of 1.8. NOTE: T-score: Standard deviation compared with peak bone mass of young adult mean. *Following the recommendations of the International Society of Bone densitometry, classification of hip BMD is based on the lower of two T-scores; total hip or femoral neck. IMPRESSION: Normal bone mineral density of the lumbar spine and hip. FRAX not reported because: Some T-score for Spine Total or hip Total or femoral neck at or above -1.0. Reviewed, Interpreted and Dictated by Adan Rojas III, MD Transcribed by Rona Calvert Authenticated and [facility]
== END ==
PROVIDERS: PCP Physician Assistant; Visit Provider Nurse Practitioner Family
DX: Z78.0 Asymptomatic menopausal state (principal); Z87.311 Personal history of (healed) other pathological fracture
CPT/HCPCS: 77080

== ENCOUNTER → 2023-01-24 13:13 | Outpatient (CLI) | payer MEDICARE, SELFPAY ==
[2023-01-24 13:02] LABS: Basophils # 0.1 K/mm3 (0-0.2); Basophils % 0.9 % (0.1-2.0); Eosinophils # 0.1 K/mm3 (0.0-0.4); Eosinophils % 1.3 % (0.1-12.0); Hematocrit 41.7 % (37.0-47.0); Hemoglobin 14.7 g/dL (12.2-16.2); Lymphocytes # 2.6 K/mm3 (0.7-4.5); Lymphocytes % 38.2 % (10-50); Mean Corpuscular HGB Conc 35.1 g/dL (31.8-35.4); Mean Platelet Volume 7.7 fl (7.4-10.4); Monocytes # 0.4 K/mm3 (0.1-1.0); Monocytes % 5.5 % (1.7-9.3); Neutrophils # 3.7 K/mm3 (1.8-7.8); Platelet Count 388 K/mm3 (142-424); Red Blood Count 4.59 M/mm3 (4.20-5.40); Red Cell Distribution Width 12.9 % (11.5-17.5); White Blood Count 6.9 K/mm3 (4.8-10.8)
[2023-01-24 13:56] LABS: Alanine Aminotransferase 17 U/L (12-78); Albumin Level 4.8 g/dl (3.5-5.0); Albumin/Globulin Ratio 1.3 (1.1-1.8); Alkaline Phosphatase 62 U/L (38-126); Anion Gap 17.8 mEq/L (5-15); Aspartate Amino Transferase 32 U/L (14-36); Bilirubin,Total 0.4 mg/dl (0.2-1.3); Blood Urea Nitrogen 10 mg/dl (7-17); Calcium 9.5 mg/dl (8.4-10.2); Carbon Dioxide 30 mmol/L (22.0-30.0); Chloride 92 mmol/L (98-107); Chol/HDL Ratio 3.6 (1-3.5); Cholesterol 213 mg/dl (140-200); Estimated Glomerular Filt Rate 84 ml/min (>60); GFR (African American) 101 ML/MIN (>60); Globulin 3.6 g/dL (1.3-3.2); Glucose 93 mg/dl (74-100); HDL Cholesterol 59 mg/dl (40-60); Potassium 3.8 mmoL/L (3.5-5.1); Sodium 136 mmol/L (136-145); Total Protein,Serum 8.4 g/dl (6.3-8.2); Triglycerides 142 mg/dl (30-150); VLDL Cholesterol 28 mg/dL (0-40)
[2023-01-24 14:07] LABS: Direct LDL Cholesterol 107.52 mg/dL (100-129)
[2023-01-24 14:28] LABS: Thyroid Stimulating Hormone 3.59 uIU/mL (0.465-4.68)
== END ==
PROVIDERS: PCP Physician Assistant; Visit Provider Physician Assistant
DX: E03.9 Hypothyroidism, unspecified (principal)
CPT/HCPCS: 80053; 80061; 84443; 85025

== ENCOUNTER → 2023-02-09 07:52 | Outpatient (CLI) | payer MEDICARE, SELFPAY ==
--- NOTE | 2023-02-09 07:52 | MM_ITS ---
PROCEDURE INFORMATION: Exam: MG Bilateral Screening 3D Mammography Exam date and time: 02/09/2023 7:53 AM Age: 67 years old Clinical indication: Screening examination TECHNIQUE: Imaging protocol: Bilateral Screening tomosynthesis and 2D mammography including computer-aided detection (CAD) when performed. COMPARISON: 1. MG MM DIG SCREENING MAMM BI W/CAD 01/19/2022 9:31 AM 2. MG MM DIG SCREENING MAMM BI W/CAD 12/15/2020 10:54 AM FINDINGS: MAMMOGRAPHY: Breast composition: There are scattered areas of fibroglandular density. Mass: None. Architectural distortion: None. Calcifications: No suspicious calcifications. Asymmetric density: None. Skin thickening: None. Axillary adenopathy: None. IMPRESSION: No mammographic evidence of malignancy. Annual screening is recommended unless otherwise clinically indicated. ASSESSMENT: BI-RADS Category 1: Negative
== END ==
PROVIDERS: PCP Physician Assistant; Visit Provider Physician Assistant
DX: Z12.31 Encounter for screening mammogram for malignant neoplasm of breast (principal)
CPT/HCPCS: 77063; 77067

== ENCOUNTER 2023-05-22 07:40 | Outpatient (CLI) | payer MEDICARE, SELFPAY ==
[2023-05-22 09:01] LABS: Chol/HDL Ratio 2.9 (1-3.5); Cholesterol 170 mg/dl (140-200); HDL Cholesterol 58 mg/dl (40-60); Triglycerides 128 mg/dl (30-150); VLDL Cholesterol 26 mg/dL (0-40)
[2023-05-22 09:12] LABS: Direct LDL Cholesterol 70.29 mg/dL (100-129)
== END 2023-05-22 23:59 ==
LOC: LAB 07:42
PROVIDERS: PCP Physician Assistant; Visit Provider Internal Medicine Cardiovascular Disease
DX: E78.2 Mixed hyperlipidemia (principal)
CPT/HCPCS: 36415; 80061

== ENCOUNTER 2023-11-09 13:15 | Outpatient (CLI) | payer MEDICARE, SELFPAY | END 2023-11-09 23:59 | disposition home or self-care (01) | LOC: LAB.DROPOF 11-12 07:22 | PROVIDERS: PCP Physician Assistant; Visit Provider Physician Assistant | DX: R10.9 Unspecified abdominal pain (principal) | CPT/HCPCS: 87086 ==

== ENCOUNTER 2023-12-18 11:16 | Outpatient (CLI) | payer MEDICARE, SELFPAY ==
[2023-12-18 11:23] LABS: Adenovirus F 40/41, stool Not Detected (NotDetected); Astrovirus Not Detected (NotDetected); Campylobacter Not Detected (NotDetected); Clostridium Difficile A/B, PCR Not Detected (NotDetected); Cryptosporidium Not Detected (NotDetected); Cyclospora Cayetanesis Not Detected (NotDetected); Entamoeba histolytica Not Detected (NotDetected); Enteroaggregative E coli Not Detected (NotDetected); Enteropathogenic E coli Not Detected (NotDetected); Enterotoxigenic E coli Not Detected (NotDetected); Giardia lamblia Not Detected (NotDetected); Plesimonas Shigalloides, PCR Not Detected (NotDetected); Rotavirus A Not Detected (NotDetected); Salmonella, PCR Not Detected (NotDetected); Sapovirus Not Detected (NotDetected); Shiga-like toxin E coli Not Detected (NotDetected); Shigella Enterovasive E coli Not Detected (NotDetected); Vibrio Cholerae Not Detected (NotDetected); Vibrio, PCR Not Detected (NotDetected); Yersinia Entercolitica, PCR Not Detected (NotDetected)
[2023-12-18 18:49] LABS: Norovirus Detected (NotDetected)
== END 2023-12-18 23:59 | disposition home or self-care (01) ==
LOC: LAB 11:17
PROVIDERS: PCP Physician Assistant; Visit Provider Nurse Practitioner Family
DX: K92.1 Melena (principal); R10.9 Unspecified abdominal pain; R19.7 Diarrhea, unspecified; R15.2 Fecal urgency; R19.4 Change in bowel habit
CPT/HCPCS: 87506

== ENCOUNTER 2024-03-10 09:04 | Outpatient (CLI) | payer MEDICARE, SELFPAY ==
--- NOTE | 2024-03-10 09:08 | XR_ITS ---
FINAL REPORT CLINICAL HISTORY: SCREENING COMPARISON: 06/27/2022 FINDINGS: Using L1-4, the bone mineral density of the spine is 1.369 g/cm2, corresponding to T-score of 2.9, within normal limits. Previously was 1.366 with a T-score of 2.9. Using the left hip, the bone mineral density of the total hip is 1.185 g/cm2, corresponding to a T-score of 2.0, within normal limits. Previously was 1.177 with a T-score of 1.9. Using the right hip, the bone mineral density of the total hip is 1.213 g/cm2, corresponding to a T-score of 2.2, within normal limits. Previously was 1.052 with a T-score of 1.8. FRAX not reported because all T-scores at or above -1.0. NOTE: T-score: Standard deviation compared with peak bone mass of young adult mean. *Following the recommendations of the International Society of Bone densitometry, classification of hip BMD is based on the lower of two T-scores; total hip or femoral neck. IMPRESSION: Normal bone mineral density of the lumbar spine and hips. Reviewed, Interpreted and Dictated by Henry Grigsby MD Transcribed by Carmen Mosley Authenticated and [facility]
--- NOTE | 2024-03-10 09:08 | MM_ITS ---
PROCEDURE INFORMATION: Exam: MG Bilateral Screening 3D Mammography Exam date and time: 03/10/2024 9:09 AM Age: 68 years old Clinical indication: Screening examination TECHNIQUE: Imaging protocol: Bilateral Screening tomosynthesis and 2D mammography including computer-aided detection (CAD) when performed. COMPARISON: 1. MG MM DIG SCREENING MAMM BI W/CAD 02/09/2023 7:53 AM 2. MG MM DIG SCREENING MAMM BI W/CAD 01/19/2022 9:31 AM FINDINGS: MAMMOGRAPHY: Breast composition: There are scattered areas of fibroglandular density. Mass: None. Architectural distortion: None. Calcifications: No suspicious calcifications. Asymmetric density: None. Skin thickening: None. Axillary adenopathy: None. IMPRESSION: No mammographic evidence of malignancy. Annual screening is recommended unless otherwise clinically indicated. ASSESSMENT: BI-RADS Category 1: Negative.
== END 2024-03-10 23:59 | disposition home or self-care (01) ==
LOC: RAD 09:06
PROVIDERS: PCP Physician Assistant; Visit Provider Physician Assistant
DX: M81.0 Age-related osteoporosis without current pathological fracture (principal); Z12.31 Encounter for screening mammogram for malignant neoplasm of breast
CPT/HCPCS: 77063; 77067; 77080

== ENCOUNTER 2024-04-28 08:24 | Outpatient (CLI) | payer MEDICARE, SELFPAY ==
--- NOTE | 2024-04-28 08:27 | US_ITS ---
FINAL REPORT TECHNIQUE: Thyroid ultrasound CLINICAL HISTORY: GOITER COMPARISON: None FINDINGS: THYROID ULTRASOUND: The thyroid gland is severely enlarged, the right lobe measuring 30.4 cc in volume, the left lobe measuring 34 cc in volume. The gland is heterogeneous and vascular, in appearance which could be secondary to Graves' disease or acute thyroiditis. There are 2 nodular areas in the left lobe that are heterogeneous, however if treated as discrete nodules, these nodules are hypoechoic, TI-RADS category 3 nodules, likely benign. IMPRESSION: Severe thyromegaly with a heterogeneous and vascular thyroid gland, which may be secondary to Graves' disease or acute thyroiditis. 2 nodular areas as described in the left lobe, if treated as discrete nodules these represent TI-RADS category 3 hypoechoic nodules, which are likely benign. No additional follow-up is required at this time according to TI-RADS criteria. Reviewed, Interpreted and Dictated by Henry Grigsby MD Transcribed by Yanira Angulo Authenticated and . [facility]
== END 2024-04-28 23:59 | disposition home or self-care (01) ==
LOC: RAD 08:25
PROVIDERS: PCP Physician Assistant; Visit Provider Physician Assistant
DX: E04.2 Nontoxic multinodular goiter (principal)
CPT/HCPCS: 76536

== ENCOUNTER 2024-06-17 09:54 | Outpatient (CLI) | payer MEDICARE, SELFPAY ==
--- NOTE | 2024-06-17 09:57 | US_ITS ---
FINAL REPORT CLINICAL HISTORY: LT LOWER LIMB SWELLING/MASS/LUMP COMPARISON: None FINDINGS: Limited sonographic images were obtained of the soft tissues of the left upper thigh at the region of palpable abnormality. No evidence of solid mass or fluid collection. IMPRESSION: Unremarkable exam. Reviewed, Interpreted and Dictated by Henry Grigsby MD Transcribed by Carmen Mosley Authenticated and [facility]
== END 2024-06-17 23:59 | disposition home or self-care (01) ==
LOC: RAD 09:54
PROVIDERS: PCP Physician Assistant; Visit Provider Physician Assistant
DX: R22.42 Localized swelling, mass and lump, left lower limb (principal)
CPT/HCPCS: 76882

== ENCOUNTER 2024-12-03 12:53 | Outpatient (CLI) | payer MEDICARE, SELFPAY ==
--- OUTSIDE RECORDS SUMMARY | 2024-12-03 12:56 | XMS_ITS | Clinical Summary ---
[facility] Organization [facility] Address [address] [place] [address] Care Team Providers Care Nut Steamer Name Role Phone Zaina Zavala Primary Care Provider [phone] Allergies No known active allergies Medications FLUoxetine (PROzac) 10 MG capsuleIndication s:Anxiety and depression Take 1 capsule by mouth Daily. 90 capsule 3 1 Active hydroCHLOROthiazi de (HYDRODIURIL) 50 MG tabletIndications :Essential hypertension Take 1 tablet by mouth Daily. 90 tablet 3 1 Active levothyroxine (SYNTHROID, LEVOTHROID) 75 MCG tabletIndications :Hypothyroidism, unspecified type Take 1 tablet by mouth Daily. 90 tablet 3 1 Active lisinopril (PRINIVIL,ZESTRIL ) 40 MG tabletIndications :Essential hypertension Take 1 tablet by mouth Daily. 90 tablet 3 1 Active Active Problems Problem Noted Date Diagnosed Date Anxiety and depression 02/03/2020 Other specified hypothyroidism 02/03/2020 Immunizations Immunization Administration Dates Next Due COVID-19 (SUAD) 05/21/2020 Fluzone (or Fluarix & Flulaval for VFC) >6mos Pneumococcal Polysaccharide (PPSV23) 12/11/2017 Shingrix 07/20/2020 Tdap 11/17/2018 flucelvax quad pfs =>4 YRS 01/17/2019 Family History Medical History Relation Name Comments Cancer Brother thyrid Thyroid disease Brother cancer Cancer Father lung Cancer Mother breast Relation Name Status Comments Brother Father Mother Social History Tobacco Use Types Packs/Day Years Used Date Smoking Tobacco: Never Smokeless Tobacco: Never Comments:1980 Alcohol Use Standard Drinks/Week Comments No 0 (1 standard drink = 0.6 oz pur e alcohol) AUDIT-C Answer Date Recorded Frequency of Alcohol Consumption Never 01/17/2019 Average Number of Drinks Not on file 019 Frequency of Binge Drinking Not on file 03/2018 Abuse Screen Answer Date Recorded Unsafe at Home or Work/School Not on file Feels Threatened by Someone? Not on file 11/2022 Does Anyone Keep You from Co ntacting Others or Doint Things Outside the Home? Not on file 12/25/2022 Physical Sign of Abuse Present Not on file 1 Housing Stability Answer Date Recorded Current Living Arrangements Not on file 11/2022 Potentially Unsafe Housing Conditions Not on kris e 12/25/2022 Family and Community Support Answer Tan e Recorded Help with Day-to-Day Activities Not on file 12/25/2022 Lonely or Isolated Not on file 12/25/2022 Employment Answer Date Recorded Do you want help finding or keeping work or a lynne b? Not on file 12/25/2022 Disabilities Answer Date Recorded Concentrating, Remembering, or Making Decisions Difficulty Not on file 12/25/2022 Doing Errands Independently Difficulty Not on fi le 12/25/2022 Education Answer Date Recorded Help with school or training? Not on file Preferred Language Not on file 12/25/2022 Comments No Sex and Gender Information Value Date Recorded Sex Assigned at Not on file Legal Sex Female 10:18 AM EDT Gender Identity Not on file Sexual Orientation Not on file Last Filed Vital Signs Vital Sign Reading Time Taken Comments Blood Pressure 120/80 08/13/2020 4:15 PM EDT Pulse 81 08/13/2020 4:15 PM EDT Temperature 36.4 C (97.6 F) 02/03/2020 7:51 AM EST Respiratory Rate - - Oxygen Saturation 96% 08/13/2020 4:15 PM EDT Inhaled Oxygen Concentration - - Weight 98.4 kg (217 lb) 08/13/2020 4:15 PM EDT Height 165.1 cm (5' 5 ) 08/13/2020 4:15 PM EDT Body Mass Index 36.11 08/13/2020 4:15 PM EDT Plan of Treatment Health Maintenance Due Date Last Done Comments DXA SCAN 1955 COLOGUARD 2001 COLON CANCER SCREENING 5 YEA R SIGMOIDOSCOPY 2001 CT COLONOGRAPHY 2001 FECAL OCCULT BLOOD TEST 2001 FIT Testing (1 year) 2001 Pneumococcal Vaccine 50+ (2 of 2 - PCV) 12/11/2018 12/11/2017 ZOSTER VACCINE (2 of 2) 09/14/2020 07/20/2020 ANNUAL PHYSICAL 08/13/2021 08/13/2020, 01/17, 01/17/2019 MAMMOGRAM 12/15/2021 12/15/2020, 01/17, 10/09/2019, Additional history exists COVID-19 Vaccine (2 - 2024-2 6 season) 2024 05/21/2020 INFLUENZA VACCINE 12/17/2024 02/03/2020, , 01/17/2019 COLONOSCOPY 02/05/2029 02/05/2019 COLORECTAL CANCER SCREENING 02/05/2029 TDAP/TD VACCINES Discontinued 11/17/2018 HEPATITIS C SCREENING Completed 01/17/2019 Procedures Procedure Name Priority Date/Time Associated Diagnosis Comments SCANNED - MAMMO 12/15/2020 SCANNED - COLONOSCOPY 02/05/2019 HEPATITIS C ANTIBODY Routine 01/17/2019 10:02 AM EDT Annual physical exam from Last 3 Months or Most Recently Relevant to Health Maintenance Results * SCANNED - MAMMO (12/15/2020) Anatomical Region Laterality Modality Other Diane Elliott [facility] CHART REVIEW TABS Blessing l Result * SCANNED - COLONOSCOPY (02/05/2019) Diane Elliott APRN CHART REVIEW TABS Blessing l Result * Hepatitis C Antibody (01/17/2019 10:02 AM EDT) Hepatitis C Ab Non-Reacti ve Non-Reacti ve 01/18/2019 12:50 AM EDT [facility] Blood Venipuncture / Unknown 01/17/2019 10:02 AM EDT 01/17/2019 10:02 AM EDT us Diane Kevin Earl [facility] BLOOD ORDERABLES Blessing wharton Result [facility]
[address] [place] [address], [place] [phone] from Last 3 Months or Most Recently Relevant to Health Maintenance Insurance [employer] Member Subscriber Plan / Payer (Ef fective 2018-Present) Name:Cassidy Zuleta Relation to Subscriber:Self Name:Cassidy Zuleta Payer ID:[id number] (NAIC) Type:Not on file Address: [facility] [id number] [id number] Care Teams Nut Steamer Relationship Specialty Start Date End Date Zaina Zavala PA [address] [place] [address] PCP - General Physician Hand Profiler 08/18/24
--- OUTSIDE RECORDS SUMMARY | 2024-12-03 12:56 | XMS_ITS | Clinical Summary ---
Author Organization [facility] ([place], [place], [place], [place]) Address [address] [place] [address] Care Team Providers Care Home Attendant Name Role Phone Zaina Zavala PA-C Primary Care Provider Lia Barbosa MD Unavailable Geraldo Rojas PA-C Unavailable [phone] Allergies No known active allergies Medications hydroCHLOROthia zide (HYDRODIURIL) 50 MG tablet Take 1 tablet (50 mg total) by mouth daily. Active thyroid, pork, (ARMOUR) 30 mg tablet Take 1 tablet (30 mg total) by mouth daily. Active fLUoxetine (PROzac) 10 MG capsule Take 1 capsule (10 mg total) by mouth daily. Active lisinopriL (PRINIVIL,ZESTR IL) 40 MG tablet Take 1 tablet (40 mg total) by mouth 2 (two) times daily. Active atorvastatin (LIPITOR) 10 MG tablet TAKE 1 TABLET BY MOUTH EVERY DAY 90 tablet 1 01/09/2024 Active Active Problems Problem Noted Date Diagnosed Date Encounter for general adult medical examination without abnormal findings 06/21/2022 Primary hypertension 10/15/2020 Family History Medical History Relation Name Comments Hypertension Mother Valvular heart disease Mother Relation Name Status Comments Mother Social History Tobacco Use Types Packs/Day Years Used Date Smoking Tobacco: Former Cigarettes Q uit: 1970 Smokeless Tobacco: Never Tobacco Cessation:Counseling Given: Not Answered Alcohol Use Standard Drinks/Week Comments Not Currently 0 (1 standard drink = 0.6 oz pur e alcohol) Food Insecurity Answer Date Recorded Food run out past 12 months Not on file 03/19 Food did not last past 12 months Not on file 03/30/2023 Employment Answer Date Recorded Help finding and keeping a job Not on file 0 03/30/2023 Family and Community Support Answer Tan e Recorded Help with Day to Day Activities Not on file 03/30/2023 Feeling Lonely or Isolated Not on file 03/30 Educational Attainment Answer Date Baron rded Speak language other than Tanzanian at home Not on file 03/30/2023 Want help with school or training Not on file 03/30/2023 Substance Use Answer Date Recorded Used prescription meds for non-medical reasons N ot on file 03/30/2023 Used illegal drugs past 12 months Not on file 03/30/2023 Comments Unknown Sex and Gender Information Value Date Recorded Sex Assigned at Not on file Legal Sex Female 5:37 PM CDT Gender Identity Not on file Sexual Orientation Not on file Last Filed Vital Signs Vital Sign Reading Time Taken Comments Blood Pressure 128/88 05/30/2023 10:33 AM EDT Pulse 61 05/30/2023 10:33 AM EDT Temperature - - Respiratory Rate 18 12/22/2022 11:00 AM EDT Oxygen Saturation 100% 12/22/2022 11:00 AM EDT Inhaled Oxygen Concentration - - Weight 91.7 kg (202 lb 3.2 oz) 05/30/2023 10:33 AM EDT Height 165.1 cm (5' 5 ) 05/30/2023 10:33 AM EDT Body Mass Index 33.65 05/30/2023 10:33 AM EDT Plan of Treatment Upcoming Encounters Date Type Department Care Team (Late st Contact Info) Description 12/25/2024 8:15 AM EDT Office Visit [facility] Cardiology [address] [place] [address] Lai Barbosa MD [address] [facility] [address] [place] [address] Health Maintenance Due Date Last Done Comments CT Colonography 1956 Colonoscopy 1956 Colorectal Cancer Screening 1956 DXA SCAN 1956 FOBT/FIT 1956 Fit-DNA (Cologuard) 1956 Sigmoidoscopy 1956 Depression Screening (12+) 1968 Hepatitis C Screening 1974 Breast Cancer Screening 1996 Shingles Vaccine (Zoster) (1 of 2) 2006 Pneumococcal 50+ years (2 of 2 - PCV) 12/11/2018 Medicare Initial AWV [id number] 10/18/2022 Falls Risk Screening 03/19/2024 Tobacco Cessation Counseling and Screening (12+) 05/29/2024 05/30/2023 COVID-19 VACCINE ( season) 2024 12/21/2021, 01/20/2021, 05/21/2020 Influenza Vaccine (#1) 2024 01/17/2019 DTAP/TDAP/TD VACCINES (2 - T d or Tdap) 11/17/2028 11/17/2018 Respiratory Syncytial Virus (RSV) Adult or (1 - 1-dose 75+ series) 10/30/2031 Insurance [employer] MEDICARE PPO Care Teams Home Attendant Relationship Specialty Start Date End Date Zaina Zavala PA-C [address] [place] [address] PCP - General Physician Fagoting Machine Operator 11/27/22 [place] [address] [place] [address] [address] [place] [address] Cardiology 11/27/22 Geraldo Rojas PA-C [address], [facility] [address] [place] [address] Cardiology 11/27/22
--- OUTSIDE RECORDS SUMMARY | 2024-12-03 12:56 | XMS_ITS | Clinical Summary ---
Author Organization [facility] Address [address] [place] [address] Care Team Providers Care Nursing Program Manager Name Role Phone Zaina Zavala Primary Care Provider [phone] Allergies No known active allergies Medications atorvastatin (Lipitor) 10 MG tablet Take 1 tablet (10 mg) by mouth daily. Active desvenlafaxine (Pristiq) 50 MG 24 hr tablet Take 1 tablet (50 mg) by mouth daily. 04/30/2024 Active hydroCHLOROthiaz emir (HYDRODiuril) 50 MG tablet Take 1 tablet (50 mg) by mouth daily. Active lisinopril 40 MG tablet 1 tablet (40 mg). Active Dextromethorphan -buPROPion ER (Auvelity) 45-105 MG tablet controlled-relea se Take 1 tablet by mouth 2 times a day. Active meclizine (Antivert) 25 MG tablet Take 1 tablet 3 times a day by oral route as needed for 10 days, for dizziness. 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); H/O thyroid nodule; Other fatigue; ANDRE (obstructive sleep apnea) 09/24/2024 Travel 09/18/2024 Telephone [facility] [address], [address] [place] [id number] Anastacia Melton 09/16/2024 Results Follow-Up [facility] Endocrinology [address] [place] [address] Austin Og MD 09/16/2024 Travel from Last 3 Months Immunizations Immunization Administration Dates Next Due Influenza Vaccine, Quadrivalent, Adjuvanted 12/18 Influenza, high-dose, quadrivalent 01/28/2024 Influenza, injectable, MDCK, preservative free, quadrivalent 01/17/2019 Influenza, injectable, quadrivalent, preservativ e free 02/03/2020 Pneumococcal 20-hayes Conj Vaccine 02/01/2023 Pneumococcal Polysaccharide PPV23 12/11/2017 Tdap 11/17/2018 Zoster, Recombinant 07/20/2020 Family History Medical History Relation Name Comments Thyroid cancer Brother Relation Name Status Comments Brother Social History Tobacco Use Types Packs/Day Years Used Date Smoking Tobacco: Former Cigarettes 0.3 10 S tarted: 1973 Passive Smoke Exposure: Past Smokeless Tobacco: Never Tobacco Cessation:Counseling Given: Not Answered Alcohol Use Standard Drinks/Week Comments Yes 2 (1 standard drink = 0.6 oz pur e alcohol) socially PHQ-2 Answer Date Recorded Patient Health Questionnaire-2 Score 0 06/04/2024 PHQ-9 Answer Date Recorded Patient Health Questionnaire-9 Score 4 06/04/2024 Comments Unknown Sex and Gender Information Value Date Recorded Sex Assigned at Not on file Legal Sex Female 7:48 PM EDT Gender Identity Not on file Sexual Orientation Not on file Last Filed Vital Signs Vital Sign Reading Time Taken Comments Blood Pressure 158/95 09/24/2024 11:27 AM EDT Pulse 67 09/24/2024 11:27 AM EDT Temperature 37 C (98.6 F) 09/24/2024 11:27 AM EDT Respiratory Rate - - Oxygen Saturation 97% 09/24/2024 11:27 AM EDT Inhaled Oxygen Concentration - - Weight 93.6 kg (206 lb 5.6 oz) 09/24/2024 11:27 AM EDT Height 165.1 cm (5' 5 ) 09/24/2024 11:27 AM EDT Body Mass Index 34.34 09/24/2024 11:27 AM EDT Plan of Treatment Upcoming Encounters Date Type Department Care Team (Late st Contact Info) Description 12/24/2024 9:30 AM EDT Appointment [facility] Ultrasound [address] [place] [address] 12/24/2024 11:40 AM EDT Office Visit [facility] [address], [address] [place] [address] Austin Og MD [address] [place] [address] Health Maintenance Due Date Last Done Comments [facility]-Bone Density Scan 1955 [facility]-Medicare Annual Wellness (AWV) 1955 [facility]-Infant/Child/Adol SDOH Screenings 1956 [facility]- SDOH Screenings 1974 [facility]-Adult SDOH Screenings 1974 CT Colonography 2001 Colonoscopy 2001 FIT-DNA 2001 FIT 2001 FOBT 2001 Sigmoidoscopy 2001 [facility]-Colorectal Cancer Screening 2001 [facility]-Breast Cancer Screening 2006 [facility]-RSV Vaccine: 60+ Years or (1 - Risk 60-74 years 1-dose series) 2016 [facility]-Zoster Vaccines (2 of 2) 09/14/2020 07/20/2020 [id number] Vaccine ( season) 2024 01/10/2023, 12/21/2021, 01/20/2021, Additional history exists [facility]-Influenza Vaccine (#1) 11/17/202401/27, 01/10/2023, 02/03/2020, Additional history exists [facility]-Depression Screening 06/04/2025 06/04/2024, 05/17 [facility]-DTaP,Tdap,and Td Vaccines (2 - Td or Tdap) 11/17/2028 11/17/2018 [facility]-Hepatitis C Screening Completed 01/17/2019 [facility]-Pneumococcal Vaccine: 50+ Years Completed 02/01/2023, 12/11/2017 [facility]-Obesity Intervention Completed 09/24/2024, 05/17 HPV Vaccines Aged Out No longer eligi ble based on patient's age to complete this topic [facility]-HIB Vaccines Aged Out No longer e ligible based on patient's age to complete this topic [facility]-Hepatitis A Vaccines Aged Out No longer eligible based on patient's age to complete this topic [facility]-IPV Vaccines Aged Out No longer e ligible based on patient's age to complete this topic [facility]-Rotavirus Vaccines Aged Out No lo nger eligible based on patient's age to complete this topic Procedures Procedure Name Priority Date/Time Associated Diagnosis Comments TSH Routine 09/16/2024 9:59 AM EDT 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 FREE T4, PLASMA Routine 09/16/2024 9:59 AM EDT 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 from Last 3 Months Results * Thyroid Stimulating Hormone, Plasma (09/16/2024 9:59 AM EDT) Thyroid Stimulating Hormone, Plasma 1.03 0.40 - 4.20 uIU/mL 09/16/2024 11:47 AM EDT [facility] Blood Venous blood specimen / Unknown Venipuncture / Unknown 09/16/2024 9:59 AM EDT 09/16/2024 10:00 AM EDT Austin Og MD LAB BLOOD ORDERABLES [facility] [address] [place] [id number] * Free T4, Plasma (09/16/2024 9:59 AM EDT) Free T4, Plasma 1.4 0.8 - 1.7 ng/dL 09/16/2024 11:47 AM EDT [facility] Blood Venous blood specimen / Unknown Venipuncture / Unknown 09/16/2024 9:59 AM EDT 09/16/2024 10:00 AM EDT us Austin Og MD LAB BLOOD ORDERABLES [facility] [address] [place] [address] from Last 3 Months Insurance [facility] MEDICARE Care Teams Nursing Program Manager Relationship Specialty Start Date End Date Zaina Zavala PA [address] [place] [address] PCP - General 02/15/22
--- OUTSIDE RECORDS SUMMARY | 2024-12-03 12:56 | XMS_ITS | Referral Summary ---
Author Organization [employer] ([place], [place], [place], [place]) Address [address] [place] [address] Care Team Providers Care Color Blender Name Role Phone Zaina Zavala PA-C Primary Care Provider [phone] Lai Barbosa MD Unavailable Geraldo Rojas PA-C Unavailable Allergies No known active allergies Medications hydroCHLOROthia [...] without abnormal findings 06/21/2022 Primary hypertension 10/15/2020 Social History Tobacco Use Types Packs/Day Years [...] Date Baron rded Speak language other than Anguillan at home Not on file 03/30/2023 Want [...] Description 12/25/2024 8:15 AM EDT Office Visit [facility] Cardiology [address] [place] [address] Lai Barbosa MD [address] [facility] [address] [place] [address] Insurance [employer] MEDICARE PPO Care Teams Color Blender Relationship Specialty Start Date End Date Zaina Zavala PA-C [address] [place] [address] PCP - General Physician Newspaper Library Manager 11/27/22 [place] [address] [place] [address] [address] [place] [address] Cardiology 11/27/22 Geraldo Rojas PA-C [address] [place] [address], [facility] [address] [place] [address] Cardiology 11/27/22
--- OUTSIDE RECORDS SUMMARY | 2024-12-03 12:56 | XMS_ITS | Encounter Summary ---
Author Organization Healthcare Address [address] [place] [address] Care Team Providers Care Kitchen And Counter Worker Name Role Phone Sukhdeep Zavalaie Andrés KUMAR Primary Care Provider [phone] Encounter Details Date Type Department Care Team (Late st Contact Info) Description 09/16/2024 Results Follow-Up [facility] Endocrinology [address] [place] [address] Austin Og MD [address] [facility] [address] [place] [address] Social History Tobacco Use Types Packs/Day Years Used Date Smoking Tobacco: Former Cigarettes 0.3 10 S tarted: 1973 Passive Smoke Exposure: Past Smokeless Tobacco: Never Alcohol Use Standard Drinks/Week Comments Yes 2 [...] on file Sexual Orientation Not on file documented as of this encounter Plan of Treatment Upcoming Encounters Date Type Department Care Team (Late st Contact Info) Description 12/24/2024 9:30 AM EDT Appointment [facility] Ultrasound [address] [place] [address] 12/24/2024 11:40 AM EDT Office Visit [facility] [address], [address] [place] [address] Austin Og MD [address] [facility] [address] [place] [address] documented as of this encounter Visit Diagnoses Not on filedocumented in this encounter Additional Health Concerns Assessment Noted Time PHQ-9 Depression Total Score: 4 06/05/19 25 10:01 AM EDT A fall risk assessment has been complete d for the patient 06/04/2024 10:01 AM EDT A Body Mass Index follow-up plan has been documented for the patient 06/04/2024 11:00 AM EDT documented as of this encounter Care Teams Kitchen And Counter Worker Relationship Specialty Start Date End Date Zaina Zavala PA [address] [place], [place] [id number] PCP - General 02/15/22 documented as of this encounter
--- NOTE | 2024-12-03 12:59 | MM_ITS ---
PROCEDURE INFORMATION: Exam: US Left Breast, Complete MG Left Diagnostic Breast Tomosynthesis Exam date and time: 12/03/2024 1:25 PM Age: 69 years old Clinical indication: Left breast pain; Left breast palpable lump; Additional info: Mastodynia TECHNIQUE: Imaging protocol: Complete ultrasound of all four quadrants of the left breast and the retroareolar regions, including ultrasound of the axilla when performed. Left Diagnostic tomosynthesis and 2D mammography including computer-aided detection (CAD) when performed. Unilateral or bilateral exam. COMPARISON: MG MM DIG MAMM DX UNILAT LT CAD 12/03/2024 1:05 PM FINDINGS: MAMMOGRAPHY: Breast composition: There are scattered areas of fibroglandular density. Breast mammogram findings: A skin marker is placed over the palpable area of concern in the left breast. No underlying mass or other abnormality is seen. No stellate mass, architectural distortion, or suspicious microcalcifications to suggest malignancy. No skin thickening or axillary adenopathy. ULTRASOUND: Breast ultrasound findings: Targeted ultrasound of the area of pain and palpable concern in the left breast 9 o'clock axis, 11 cm from the nipple demonstrates no underlying abnormality. There is no axillary adenopathy. Complete scanning of the remainder of the left breast demonstrates no evidence of mass, shadowing, or distortion. IMPRESSION: 1. No mammographic or sonographic evidence of malignancy. Continued clinical monitoring of any palpable area of concern is recommended. 2. Further evaluation of a palpable abnormality should be based on clinical grounds regardless of radiographic findings or lack thereof. ASSESSMENT: BI-RADS Category 1: Negative.
== END 2024-12-03 23:59 | disposition home or self-care (01) ==
LOC: RAD 12:54
PROVIDERS: PCP Physician Assistant; Visit Provider Physician Assistant
DX: N64.4 Mastodynia (principal); N63.25 Unspecified lump in the left breast, overlapping quadrants; R92.322 Mammographic fibroglandular density, left breast
CPT/HCPCS: 76641; 77061; 77065; G0279